=== PATIENT | female | born 1950 | race Two or more races ===

== ENCOUNTER 2023-10-08 13:50 | Outpatient (CLI) | payer MEDICARE | END 2023-10-08 13:51 | disposition home or self-care (01) | LOC: SCSMRI 13:50 | PROVIDERS: ATTEND Physical Medicine & Rehabilitation | DX: M54.14 Radiculopathy, thoracic region (principal); M43.9 Deforming dorsopathy, unspecified | CPT/HCPCS: 72146 ==

== ENCOUNTER 2024-05-01 21:58 | Observation (INO) | payer MEDICARE ==
[2024-05-01] MEDS ORDERED: Nitroglycerin 0.4 MG TAB (25 Tab Bottle) SL PRN (22:58)
[2024-05-01] MEDS ORDERED: Ondansetron PF 4 MG/2 ML Vial IVP PRN (23:00)
[2024-05-01] MEDS ORDERED: Acetaminophen 650 MG Suppository PR PRN (23:00)
[2024-05-01] MEDS ORDERED: Acetaminophen 325 MG TAB PO PRN (23:00)
[2024-05-01] MEDS ORDERED: Ondansetron ODT 4 MG TAB PO PRN (23:00)
[2024-05-01 23:11] VITALS: BMI 22.9
[2024-05-01 23:47] LABS: Troponin I 0.024 ng/mL (< 0.028)
[2024-05-02 02:35] LABS: Troponin I 0.032 ng/mL (< 0.028)
[2024-05-02 04:25] VITALS: TEMP 98
[2024-05-02 04:49] LABS: #Basophils 0.07 10x3/uL (0.0-0.2); %Eosinophils 8.1 % (0.0-10.0); %Lymphocytes 29.2 % (21.0-51.0); %Monocytes 9.3 % (0.0-10.0); %Neutrophils 52.3 % (42.0-75.0); Hematocrit 35.2 % (36.0-47.0); Hemoglobin 11.5 g/dL (12.0-16.0); Mean Corpuscular HGB CONC 32.7 g/dL (32.0-36.0); Mean Corpuscular Hemoglobin 29.3 pg (27.0-31.0); Mean Corpuscular Volume 89.8 fL (78.0-98.0); Mean Platelet Volume 11.6 fL (7.4-10.4); Platelet Count 166 10x3/uL (130-400); RBC Distribution Width 12.7 % (11.5-14.5); Red Blood Cell (RBC) Count 3.92 mill/uL (4.20-5.40)
[2024-05-02 05:00] LABS: ALT (SGPT) 20 U/L (Less than 34); AST (SGOT) 48 U/L (11-34); Albumin 3.4 g/dL (3.1-4.5); Alkaline Phosphatase 81 U/L (40-110); Anion Gap 13 mmol/L (10-20); BUN (Urea Nitrogen) 17 mg/dL (9.8-20.1); Bilirubin, Total 0.2 mg/dL (0.3-1.2); Calc. Creatinine Clearance 55 mL/min (70-130); Calcium 9.4 mg/dL (7.8-10.44); Carbon Dioxide 23 mmol/L (23-31); Cardiac Risk 3.2 (Less than 4.5); Chloride 110 mmol/L (98-107); Cholesterol 161 mg/dl (< 200 Desired); Estimated GFR 86; Globulin 3.2 g/dL (2.4-3.5); Glucose 112 mg/dL (83-110); HDL Cholesterol 51 mg/dL (>60 Neg Risk); LDL Cholesterol, Calculated 89 mg/dL; Potassium 3.9 mmol/L (3.5-5.1); Protein, Total 6.6 g/dL (5.8-8.1); Sodium 142 mmol/L (136-145); Triglycerides 107 mg/dL (Less than 150)
[2024-05-02] MEDS: Famotidine 20 MG TAB PO SCH (07:52)
[2024-05-02] MEDS: Aspirin Chewable 81 MG TAB PO SCH (07:52)
[2024-05-02] MEDS: Famotidine/PF 20 mg/2ml Vial SLOW IVP SCH (07:52)
[2024-05-02] MEDS ORDERED: Regadenoson 0.4 MG/5 ML SYRINGE ONE (10:25)
[2024-05-02 13:39] VITALS: BP 168/70
[2024-05-02] MEDS: Losartan 25 MG TAB PO SCH (15:15)
[2024-05-03] MEDS ORDERED: Losartan 25 MG TAB PO SCH (09:00)
[2024-05-05] MEDS ORDERED: FLU (Fluad Triv) TS24-25 (65UP)/MF59C/PF 45 MCG/0.5 ML Syringe IM ONE (09:00)
== END 2024-05-02 16:16 | disposition home or self-care (01) ==
LOC: OBS 22:57
PROVIDERS: ADMIT Student in an Organized Health Care Education/Training Program; ATTEND Student in an Organized Health Care Education/Training Program
DX: R55 Syncope and collapse (principal); R07.89 Other chest pain; I10 Essential (primary) hypertension; E78.5 Hyperlipidemia, unspecified; Z79.51 Long term (current) use of inhaled steroids; Z79.899 Other long term (current) drug therapy; R79.89 Other specified abnormal findings of blood chemistry
CPT/HCPCS: 70450; 71045; 78452; 80053 ×2; 80061; 81001; 83690; 84484 ×3; 85025 ×2; 93005; 93017; 94760; 96374; 99285; A9502; G0378 ×2; J0360; J2785 ×2; 36415